=== PATIENT | female | born 1975 | race Asian ===

== ENCOUNTER 2022-01-09 20:53 | Emergency (ER) | payer BC ==
[~2022-01-09] VITALS: Ht 162.6 cm; Wt 63.0 kg
[2022-01-09] MEDS ORDERED: FAMO20 PO (23:32)
[2022-01-09] MEDS ORDERED: PRED20 PO (23:32)
[2022-01-09] MEDS ORDERED: ONDA4ODT MM (23:32)
[2022-01-09] MEDS ORDERED: EPIPEN0.3 MG/0.3 IM (23:32)
== END 2022-01-09 23:47 | disposition home or self-care (01) ==
LOC: ER 20:53
DX: T63.481A Toxic effect of venom of other arthropod, accidental (unintentional), initial encounter (principal); L23.89 Allergic contact dermatitis due to other agents; Z79.52 Long term (current) use of systemic steroids
CPT/HCPCS: A9270; J7512